=== PATIENT | female | born 1945 | race Caucasian/White ===

== ENCOUNTER 2023-10-26 21:33 | Observation (INO) | payer MEDICARE, BC, SELFPAY ==
[2023-10-26 16:25] VITALS: BP 108/68
[2023-10-26 16:29] LABS: Glucose - Point of Care 80 mg/dl (70-99)
--- NOTE | 2023-10-26 16:42 | ED.GENMED ---
History of Present Illness
General
Chief Complaint: Change in Mental Status
Time Seen by Provider: 10/26/23 16:22
History of Present Illness
History of Present Illness:
Patient presents to the emergency department with altered mental status. She has a history of lung cancer with metastatic disease. Patient is altered at baseline per report however over the past 24 hours she has become more lethargic with
decreased p.o. intake and more confused than her baseline. Patient is awake and pleasantly confused, unable to provide reliable history. Awaiting 's arrival.
Past History
Past History
ED Past Medical History: Cancer (Brain, breast) and COPD
ED Past Surgical History: Other
Social History
Tobacco: Non-smoker
Alcohol: None
Drug: None
Personal:
Living: with family
Employment: Retired
Family History
Family History: Other (Noncontributory)
Phy Exam
Physical Exam
Physical Exam:
GENERAL APPEARANCE: NAD, well developed/ well nourished
EYES lids/conjunctiva normal
EARS/NOSE/THROAT Mucous membranes moist, uvula midline without oral pharyngeal erythema, exudate or swelling
HEAD/NECK normocephalic atraumatic, neck is supple.
RESPIRATORY respiratory effort normal, speaks in full sentences, no accessory muscle use. Lungs clear to auscultation without rhonchi, wheezes, rales
CARDIAC Regular rate and rhythm, no edema.
ABDOMINAL Soft, ND/NT. No pulsatile masses on exam, rebound tenderness, Spaulding sign or pain over Mcburney's point.
MUSCLES/EXTREMITIES No abnormal range of motion, no swelling.
SKIN Warm, pink and dry. No rashes
NEUROLOGICAL Speech is clear. Normal level of consciousness. Cranial nerves grossly intact. 5/5 strength in all extremities. Oriented x [address] with cognitive difficulties
Course
Orders/Labs/Results
Orders:
Orders
10/26/23 16:24
EKG [Electrocardiogram (*1)] Urgent
Reason for Study: Other
Other Reason for Exam: CIMS
EKG- Treatment ONCE
10/26/23 16:38
0.9% Sodium Chloride 500 ml [Nss] 500 ml IV BOLUS
Pharmacy Request to Place See Dose Instructions PO NOW STA
Discontinue all Active Warfarin orders?: Yes
Notify MD As Directed
Notify physician if: Call provider for further orders if PTT is greater than or equal to 200 per heparin
infusion protocol.
Nursing to Place Non Medication Order As Directed
Physician Order: PTT 6 hours after initial start of Heparin infusion
Pulse Ox/cont/shift [RESP] Stat
Quantity: 1
10/26/23 16:39
CT Head W/o Iv Contrast Urgent
Comment:
Reason For Exam: altered mental status
CR Chest - 2 Views Urgent
Comment:
Reason For Exam: altered mental status
10/26/23 16:41
Blood Culture Urgent
CLARENCE Source: Blood/Venous
Specimen Description:
10/26/23 17:[address] See Dose Instructions IV DIRECTED
10/26/23 17:34
CBC/With Diff [Complete Blood Count/With Diff] Urgent
CMP [Comprehensive Metabolic Panel] Urgent
Magnesium Urgent
PTT Urgent
Comment: Obtain baseline before beginning heparin infusion if not already collected
TSH Urgent
Troponin I Urgent
10/26/23 19:12
Urinalysis Reflex To Culture Urgent
Date Specimen was Collected: 10/26/23
Time Specimen was Collected: 19:11
Urine Microscopic Reflex Cult Urgent
10/26/23 20:10
Azithromycin 500 mg/250 ml [Zithromax Infusion] 500 mg in 250 ml IV NOW
CefTRIAXone [Rocephin] 1,000 mg IV NOW STA
Abnormal Lab Results
10/26/23 10/26/23
17:34 19:12
RBC 3.89 L 10^6/uL
(4.20-5.40)
Hgb 11.2 L g/dL
(12.0-16.0)
Hct 32.9 L %
(37.0-47.0)
RDW 14.7 H %
(11.5-14.5)
Abs Immat Gran (auto) 0.1 H 10^3/uL
(0-0.05)
Immature Gran % 0.8 H %
(0-0.5)
Lymphocytes % 19.9 L %
(20.5-51.1)
APTT 48.9 H Sec
(23.4-35.0)
Sodium 133 L mmol/L
(135-145)
Chloride 96 L mmol/L
(98-107)
Total Protein 5.7 L g/dl
(6.3-8.2)
Leukocyte Esterase Rfl Trace A
(Negative)
10/26/23 17:34
10/26/23 17:34
Vital Signs
Initial and Last Documented VS:
Initial Vital Signs
Temp Pulse Resp BP Pulse Ox
98.5 F 87 17 108/68 98
10/26/23 16:25 10/26/23 16:25 10/26/23 16:25 10/26/23 16:25 10/26/23 16:25
Last Documented Vital Signs
Temp Pulse Resp BP Pulse Ox
98.5 F 87 17 108/68 98
10/26/23 16:25 10/26/23 16:25 10/26/23 16:25 10/26/23 16:25 10/26/23 16:25
*Critical Care Note
Total Time (30-74mins, 75-104mins- exclusive of procedures): Not Applicable
ED Attending Note
ED Attending Note
ED Attending Note:
Patient presents with altered mental status and poor p.o. intake. She has no focal neurologic deficits but is confused. Suspect dehydration. Suspect metabolic or infectious causes. Will check CT head given history of brain cancer to rule out
intracranial hemorrhage. Will perform broad workup including blood cultures given history of bacteremia.
hx of lung cancer with mets to brain/bone, dvt on eliquis , copd
here with altered mental status
notes poor PO intake, increased lethargy over the past day.
has had similar episodes that self resolved in the past but this one is persisting
he is worried about her safety at home
she is afebrile, hemodynamically stable, no focal deficits, she is awake and alert but she is confused
workup is largely reassuring - CT is not acute
labs with mild anemia, mild hyponatremia
CXR with possible L basilar infiltrate (RADS HASNT READ YET) -- she has no respiratory issues but giving her a dose of abx
urine negative
has a hx of bacteremia in the past - blood culture sent
-
Portions of this chart may have been created with voice recognition software.� Occasional wrong word or��sound alike� substitutions may have occurred due to the inherent limitations of voice recognition software.
Discharge Plan
Departure
Patient Disposition: Admit
Date of Disposition: 10/26/23
Time of Disposition: 20:12
Presentation/result/management discussed w/ accepting MD/DO: Hospitalist
Discharge Problem:
Pneumonia, Acute alteration in mental status
Prescriptions:
No Action
simvastatin 40 mg tablet
40 mg PO HS
ferrous sulfate 325 mg (65 mg iron) tablet
325 mg PO DAILY
folic acid 1 mg tablet
1 mg PO DAILY
albuterol sulfate 90 mcg/actuation HFA aerosol inhaler
2 puff INHALATION R Q4 PRN (Reason: sob)
Eliquis 5 mg tablet
5 mg PO BID
Anoro Ellipta 62.5-25 mcg/actuation blister with device
1 inh INHALATION R DAILY
polyethylene glycol 3350 [Miralax] 17 gram powder in packet
17 g PO BID Qty: 100 1RF
Rx Instructions:
HOLD DOSE OR TWO IF HAVE DIARRHEA
amoxicillin-pot clavulanate 875-125 mg tablet
1 tab PO BID Qty: 14 0RF
albuterol sulfate 2.5 mg /3 mL (0.083 %) solution for nebulization
2.5 mg inhalation Q4H PRN (Reason: shortness of breath or wheezing) Qty: 180 0RF
prednisone 10 mg Tablet
See Rx Instructions .ROUTE .COMPLEX Qty: 30 0RF
Rx Instructions:
Take By Mouth:
40 mg daily x3 days, 30 mg daily x3 days,
20 mg daily x3 days, 10 mg daily x3 days.
Referrals:
Aaron Bowers MD [Family Provider] -
Interventions
Interventions:
*Risk Screen - Suicide Last Done: 10/26/23 16:25
*General Assessment Last Done: 10/26/23 16:25
*Neglect/Abuse Screening Last Done: 10/26/23 16:25
Discharge Date and Time
Print Language: MOHAWK
[2023-10-26 17:00] VITALS: BP 96/56
[2023-10-26] MEDS: NSS 500 IV (17:36)
[2023-10-26 17:45] LABS: % Basophils 0.2 % (0-2); % Eosinophils 1.4 % (0-6); % Immature Granulocytes 0.8 % (0-0.5); % Lymphocytes 19.9 % (20.5-51.1); % Monocytes 5.8 % (1.7-9.3); % Neutrophils 71.9 % (42.2-75.2); Absolute Eosinophils 0.1 10^3/uL (0-0.7); Absolute Immature Granulocytes 0.1 10^3/uL (0-0.05); Absolute Lymphocytes 1.3 10^3/uL (1.2-3.4); Absolute Monocytes 0.4 10^3/uL (0.1-0.6); Absolute Neutrophils 4.6 10^3/uL (1.4-6.5); Hematocrit 32.9 % (37.0-47.0); Hemoglobin 11.2 g/dL (12.0-16.0); Mean Corpuscular Hgb 28.8 pg (27.0-31.0); Mean Corpuscular Volume 84.6 fL (81.0-99.0); Mean Platelet Volume 9.9 fL (7.4-10.4); Nucleated Red Blood Cells % 0 %; Platelet Count 168 10^3/uL (130-400); Red Blood Cell Count 3.89 10^6/uL (4.20-5.40); Red Cell Dist. Width 14.7 % (11.5-14.5); White Blood Cell Count 6.4 10^3/uL (4.8-10.8)
[2023-10-26 17:54] LABS: APTT 48.9 Sec (23.4-35.0)
[2023-10-26 18:04] LABS: Troponin I < 0.012 ng/ml
[2023-10-26 18:06] LABS: ALT (SGPT) 21 U/L (0-35); AST (SGOT) 28 U/L (14-36); Albumin 3.6 g/dl (3.5-5.0); Alkaline Phosphatase 64 U/L (38-126); Blood Urea Nitrogen 14 mg/dl (7-17); Carbon Dioxide 30 mmol/L (22-30); Chloride 96 mmol/L (98-107); Estimated Creatinine Clearance 53 ml/min; Glucose 94 mg/dl (70-99); Magnesium 2.2 mg/dl (1.6-2.3); Potassium 3.6 mmol/L (3.5-5.1); Sodium 133 mmol/L (135-145); Total Bilirubin 0.6 mg/dl (0.2-1.3); Total Protein 5.7 g/dl (6.3-8.2); eGFR > 60.00
[2023-10-26 18:31] LABS: TSH 1.72 uIU/ml (0.47-4.68)
[2023-10-26 18:40] VITALS: BP 111/64
[2023-10-26 19:11] VITALS: BP 116/73
[2023-10-26 19:23] LABS: Urine Albumin Negative (Neg - Trace); Urine Bilirubin Negative (Negative); Urine Character Clear (Clear); Urine Color Straw; Urine Glucose Negative (Negative); Urine Ketone Negative (Negative); Urine Leukocyte Trace (Negative); Urine Nitrite Negative (Negative); Urine Occult Blood Negative (Negative); Urine Specific Gravity 1.005 (<1.030); Urine Urobilinogen Negative (Neg - 1+)
[2023-10-26 19:33] LABS: Urine Red Blood Cell None Seen /HPF (0-2); Urine White Cell 0-2 /HPF (0-5)
[2023-10-26 20:00] VITALS: BP 124/65
--- NOTE | 2023-10-26 20:40 | HPS.HSE ---
Family Physician
-
Family Physician: Aaron Bowers
Chief Complaint
-
Confusion / Change in Mental Status
History of Present Illness
Patient is a 78y F with PMH significant for metastatic lung cancer who presents to ED for evaluation of confusion. History obtained from patient and her at the bedside. states that patient was doing fairly well until last PM
around 10. At this point she became more confused, very weak and had difficulty speaking or following commands. notes that patient has had similar episodes in the past - typically lasting only minutes - hours. Unfortunately, this episode
lasted for several hours and persisted this AM. Patient was restless overnight and at one point fell from the bed. No evident injuries were appreciated.
Patient has had no recent / new symptoms including fevers / chills, sore throat, cough, N/V/D or complaints.
At the time of my examination in the ED, patient is awake and alert and able to contribute to this history. She states that she feels very well at present.
Medical History
Past Medical History
Past Medical History: Reports Other
Additional Past Medical History:
Metastatic Lung Cancer s/p Immunotherapy, Chemo, XRT, etc - Not currently on active treatment.
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
COPD
History of DVT
Past Surgical History: Reports Other
Additional Past Surgical History:
Left Lumpectomy
Chemo Port Placement R ACW
GammaKnife Surgery
Social History
Tobacco: Former Smoker (Quit smoking 15 years ago. > 40 pack years total use.)
Alcohol: None
Drug: None
Personal:
Living: With Family
Family History
Family History: Not pertinent
Allergies / Home Medications
Allergies reflects when Allergies were last updated in [facility].
Home Medications with original date entered in [facility]
Allergy/Medication List:
Allergies
Allergy/AdvReac Type Severity Reaction Status Date / Time
No Known Allergies Allergy Verified 12/13/22 18:05
Home Medications
albuterol sulfate 90 mcg/actuation aerosol inhaler 2 puff inhalation R Q4 PRN sob 12/13/22
apixaban 5 mg tablet (Eliquis) 5 mg PO BID DVT 12/13/22
ferrous sulfate 325 mg (65 mg iron) tablet 325 mg PO DAILY Supplement 12/13/22
simvastatin 40 mg tablet 40 mg PO HS High Cholesterol 12/13/22
arformoterol 15 mcg/2 mL solution for nebulization (Brovana) 2 ml inhalation BID 10/26/23
budesonide 0.5 mg/2 mL suspension for nebulization 0.5 mg inhalation BID 10/26/23
dexamethasone 4 mg tablet 4 mg PO DAILY 10/26/23
revefenacin 175 mcg/3 mL solution for nebulization (Yupelri) 175 mcg inhalation DAILY 10/26/23
Review of Systems
-
History Source: Patient and Family
A 12 point ROS was completed and negative except as noted: Yes
Constitutional: Reports Fatigue; Denies Fever or Chills
EENT: Denies Sore Throat
Respiratory: Denies Cough or Trouble Breathing
Cardiac: Denies Chest Pain or Palpitations
Abdomen/GI: Denies Abdominal Pain, Nausea, Vomiting or Diarrhea
: Denies Dysuria, Frequency or Flank Pain
Neurological: Denies Dizzy or Headache
Psych: Reports Dementia; Denies Depression or Anxiety
Physical Exam
Vital Signs
Vital Signs
Temp Pulse Resp BP Pulse Ox
98.5 F 87 17 108/68 98
10/26/23 16:25 10/26/23 16:25 10/26/23 16:25 10/26/23 16:25 10/26/23 16:25
Physical Exam
General: Other (78y F in no acute distress at present.)
HEENT: Moist mucous membranes and PERRLA
Respiratory: Clear; No Wheezes, Rales or Rhonchi
Cardiac: S1/S2 and Regular Rhythm; No Murmur
GI: Soft, Non Tender, Non Distended and Normal Bowel Sounds
Musculoskeletal: No Clubbing, No Cyanosis and No Edema
Neuro: AO x 3 and Nonfocal/grossly intact
Laboratory Results
-
10/26/23 17:34
10/26/23 17:34
Laboratory Results
APTT 48.9 Sec (23.4-35.0) H 10/26/23 17:34
Total Bilirubin 0.6 mg/dl (0.2-1.3) 10/26/23 17:34
AST 28 U/L (14-36) 10/26/23 17:34
ALT 21 U/L (0-35) 10/26/23 17:34
Alkaline Phosphatase 64 U/L (38-126) 10/26/23 17:34
Troponin I < 0.012 ng/ml 10/26/23 17:34
Impression/Plan
-
A/P: Patient is a 78y F with PMH significant for metastatic lung cancer not currently on active treatment who presents to ED for evaluation of episode of confusion.
Acute on Chronic TME
- Observe overnight for further evaluation and treatment.
- No evidence of any acute process underlying her mental status change at this time.
- She is afebrile, non-toxic without leukocytosis or any clinical complaints.
- Would observe off of any further abx for now. Follow fever curve, culture data, etc.
- Recent Neurology evaluation per noting BUSINESS DATABASE ANALYST changes likely as a result of prior whole brain radiation.
- Suspect that this has a great deal to do with her episodic confusion / apparent developing dementia.
- Follow for any new / worsening symptoms.
- Follow for an evidence of acute underlying process.
Metastatic Lung Cancer
- No currently on active treatment. Last chemo was 2 months ago.
- CT head done in the ED today is unremarkable - for noncontrast CT.
- Patient was started on dexamethasone a few weeks ago by Oncology.
- Purpose for this is unclear, but hesitate to adjust this medication at present.
- Follow-up with Oncology as an outpatient as planned.
COPD
- Stable. No cough, wheezing, etc.
- Continue usual inhaled medications.
- Monitor for any new respiratory complaints.
Mild Hyponatremia
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
- Fluid restriction.
- Follow for any changes.
DVT Prophylaxis
History of DVT
- Continue Eliquis
Code Status: Full
[2023-10-26] MEDS: ZITHROMAX INFUSION 250 IV (21:51)
[2023-10-26] MEDS: ROCEPHIN 1000 MG IV (21:51)
--- NOTE | 2023-10-26 22:32 | PTCARENOTE ---
Pt received from ED to [facility]. Pt oriented to room and call becker. Bed alarm in place.
[2023-10-26] MEDS: LIPITOR 20 MG PO (23:09)
[2023-10-26 23:22] VITALS: BMI 21.6
[2023-10-26 23:23] VITALS: BP 101/59; BP 98/58; PULSE 96; PULSE 97
[2023-10-27 00:06] LABS: Ammonia < 9 umol/L (9-30)
[2023-10-27 03:15] VITALS: BP 106/53
[2023-10-27 06:00] VITALS: BMI 21.6
[2023-10-27 06:25] LABS: Hematocrit 31.5 % (37.0-47.0); Hemoglobin 10.6 g/dL (12.0-16.0); Mean Corp Hgb Conc. 33.7 g/dL (33.0-37.0); Mean Corpuscular Hgb 28.5 pg (27.0-31.0); Mean Corpuscular Volume 84.7 fL (81.0-99.0); Mean Platelet Volume 9.1 fL (7.4-10.4); Platelet Count 158 10^3/uL (130-400); Red Blood Cell Count 3.72 10^6/uL (4.20-5.40); Red Cell Dist. Width 14.6 % (11.5-14.5)
[2023-10-27 06:42] LABS: Blood Urea Nitrogen 13 mg/dl (7-17); Calcium 8.6 mg/dl (8.4-10.2); Carbon Dioxide 31 mmol/L (22-30); Chloride 100 mmol/L (98-107); Estimated Creatinine Clearance 62 ml/min; Glucose 73 mg/dl (70-99); Sodium 136 mmol/L (135-145); eGFR > 60.00
[2023-10-27 07:12] LABS: TSH Reflex To Free T4 2.15 uIU/ml (0.47-4.68)
[2023-10-27 07:44] VITALS: BP 119/74
[2023-10-27 07:45] VITALS: BP 116/57; BP 119/74; PULSE 84; PULSE 88
--- NOTE | 2023-10-27 08:24 | W.PN.HOSP.TC ---
Today's Communication/Plan
-
Discharge today
Assessment / Plan
Assessment / Plan
HPI: 78y F with PMH significant for metastatic lung cancer who presents to ED for evaluation of confusion. History obtained from patient and her at the bedside. states that patient was doing fairly well until last PM around 10.
At this point she became more confused, very weak and had difficulty speaking or following commands. notes that patient has had similar episodes in the past - typically lasting only minutes - hours. Unfortunately, this episode lasted for
several hours and persisted this AM. Patient was restless overnight and at one point fell from the bed. No evident injuries were appreciated.
Acute on Chronic TME
- No evidence of any acute process underlying her mental status change at this time.
- She is afebrile, non-toxic without leukocytosis or any clinical complaints.
- Recent Neurology evaluation per noting LICENSED PRACTICAL NURSE INSTRUCTOR changes likely as a result of prior whole brain radiation.
- Suspect that this has a great deal to do with her episodic confusion / apparent developing dementia.
- TSH normal, B12 normal, ammonia normal
- would like patient discharged so he can take her to her MRI appointment at 5:30 PM today, and follow-up with her usual neurologist this week
- Discharge today
Metastatic Lung Cancer
- No currently on active treatment. Last chemo was 2 months ago.
- CT head done in the ED is unremarkable - for noncontrast CT.
- Patient was started on dexamethasone a few weeks ago by Oncology.
- Purpose for this is unclear, but hesitate to adjust this medication at present.
- Follow-up with Oncology as outpatient as planned.
COPD
- Stable. No cough, wheezing, etc.
- Continue usual inhaled medications.
- Monitor for any new respiratory complaints.
Mild Hyponatremia
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
- Resolved with fluid restriction, trend sodium
DVT Prophylaxis
History of DVT
- Continue Eliquis
Code Status: Full
Physical Exam
General: No acute distress
HEENT: Normocephalic, Atraumatic, EOMI, MMM
Respiratory: Clear to Auscultation bilaterally
Cardiac: Normal S1/S2, Regular Rate and Rhythm
GI: Soft, Nontender, Nondistended, Normal Bowel Sounds
Extremities: No Clubbing, Cyanosis, or Edema
Neuro: Nonfocal/Grossly Intact
Psych: Calm, Cooperative
Derm: No Visible lesions
Anticipated Discharge: Today
Subjective/Interval History
-
Date of Service: October 27, 2023
Patient not really answering many questions. She does not verbalize. No fever, no vomiting.
Objective Data
-
Labs:
Laboratory Results
10/27/23
05:52
WBC 5.0
Hgb 10.6 L
Hct 31.5 L
Plt Count 158
Sodium 136
Potassium 4.0
Chloride 100
Carbon Dioxide 31 H
BUN 13
Creatinine 0.6
Glucose 73
Calcium 8.6
Vital Signs:
Vital Signs
Temp Pulse Resp BP Pulse Ox
98 F 84 18 119/74 95
10/27/23 07:44 10/27/23 07:44 10/27/23 07:44 10/27/23 07:44 10/27/23 07:44
[2023-10-27 08:51] VITALS: BP 102/53; BP 106/66; PULSE 87; O2SAT 96
[2023-10-27 08:52] VITALS: BP 102/53; BP 106/66
[2023-10-27] MEDS: FEOSOL 325 MG PO (08:53)
[2023-10-27] MEDS: DECADRON 4 MG PO (08:53)
[2023-10-27] MEDS: ELIQUIS 5 MG PO (08:53)
[2023-10-27 11:19] VITALS: BP 117/64
[2023-10-27 12:08] LABS: Vitamin B12 > 1000 pg/ml (239-931)
--- NOTE | 2023-10-27 14:01 | W.DCSUMMARY ---
Discharge Summary
Discharge Data
Date of Admission: 10/26/23
Date of Discharge: 10/27/23
-
Pending Results: No
Hospital Course
Discharge diagnosis:
Acute on chronic toxic metabolic encephalopathy
Probable sequela of whole brain radiation
Metastatic lung cancer
Chronic obstructive pulmonary disease
Mild hyponatremia
Head CT:
No evidence of acute intracranial abnormality.
Mild to moderate diffuse atrophy. Moderate to severe leukomalacia.
Hospital course:
78-year-old female with a past medical history of metastatic lung cancer with metastases to the brain status post whole brain radiation, and COPD was brought in by her for acute on chronic toxic metabolic encephalopathy. reports
that patient has been having intermittent episodes of confusion, weakness, and speech difficulty. This lasts for minutes to hours. Patient was seen by her usual neurologist at [place], who stated that her PHARMACEUTICAL COMPOUNDING SUPERVISOR changes are likely a result of prior
whole brain radiation. Her TSH and ammonia levels were normal. B12 was supratherapeutic. Patient was monitored overnight. Her requested discharge so he can take her to her MRI appointment at 5:30 PM today. She has an appointment to
follow-up with her usual neurologist later this week.
Patient is discharged in stable condition. She needs to follow-up with her usual neurologist this week, as well as her primary care doctor in 1 week.
Disposition: Home self care (spouse declined home VN)
Discharge planning: Required 40 minutes
Discharge Plan
-
Patient Disposition: Home (Routine Discharge)
Discharge Diagnosis/Procedures: Acute on chronic toxic metabolic encephalopathy from radiation, metastatic lung cancer not on treatment currently
Condition: Fair
Diet: Low Fat and Low Cholesterol
Activity: As tolerated
Driving Restrictions: No driving
Activity Restrictions/Additional Instructions:
Please keep your MRI appointment today at 5:30pm, and follow-up with neurology in the office as scheduled.
Referrals:
Aaron Bowers MD [Family Provider] - in one week
Prescriptions:
Continued
simvastatin 40 mg tablet
40 mg PO HS
ferrous sulfate 325 mg (65 mg iron) tablet
325 mg PO DAILY
albuterol sulfate 90 mcg/actuation HFA aerosol inhaler
2 puff INHALATION R Q4 PRN (Reason: sob)
Eliquis 5 mg tablet
5 mg PO BID
dexamethasone 4 mg Tablet
4 mg PO DAILY
budesonide 0.5 mg/2 mL Suspension For Nebulization
0.5 mg INHALATION BID
arformoterol [Brovana] 15 mcg/2 mL Solution For Nebulization
2 ml INHALATION BID
Yupelri 175 mcg/3 mL Solution For Nebulization
175 mcg INHALATION DAILY
Discharge Orders:
Discharge Patient (As Directed); Ordered 10/27/23
Ordered By: Shawn Wood
Discharge Date and Time
Discharge Date/Time: 10/27/23 14:46
Print Language: KITTITIAN
--- NOTE | 2023-10-27 14:05 | CM ---
Patient was admitted under OBS, DAWN letter provided to patient and signed. Patient lives with spouse in a one story home, per spouse patient is able to stand and pivot to w/c, spouse assists with all care, patient has caregivers 2 days a week 6
hours per days spouse is trying to increase services. shift manager offered patient's spouse visiting nurses however patient's spouse states that they have a meeting this week with neurology and they are working on plan for patient including goals of
care.
Pharmacy; [facility]
PCP; Dr. Bowers
Plan; Home with spouse and private caregivers and follow up with patient's neurologist this week.
== END 2023-10-27 14:46 | disposition home or self-care (01) ==
LOC: 4 WEST ACU 21:33
PROVIDERS: ADMITTING PHYSICIAN Hospitalist; ATTENDING PHYSICIAN Family Medicine; EMERGENCY PHYSICIAN Emergency Medicine; FAMILY PHYSICIAN Internal Medicine
DX: G92.8 Other toxic encephalopathy (principal); R53.83 Other fatigue; R41.0 Disorientation, unspecified; C34.90 Malignant neoplasm of unspecified part of unspecified bronchus or lung; E87.1 Hypo-osmolality and hyponatremia; G31.89 Other specified degenerative diseases of nervous system; J43.9 Emphysema, unspecified; D64.9 Anemia, unspecified; C79.31 Secondary malignant neoplasm of brain; I45.10 Unspecified right bundle-branch block; R47.9 Unspecified speech disturbances; R45.1 Restlessness and agitation; W06.XXXA Fall from bed, initial encounter; Y93.89 Activity, other specified; Y92.003 Bedroom of unspecified non-institutional (private) residence as the place of occurrence of the external cause; Z85.3 Personal history of malignant neoplasm of breast; Z87.01 Personal history of pneumonia (recurrent); Z86.718 Personal history of other venous thrombosis and embolism; Z79.01 Long term (current) use of anticoagulants; Z79.51 Long term (current) use of inhaled steroids; Z79.52 Long term (current) use of systemic steroids; Z92.21 Personal history of antineoplastic chemotherapy; Z92.3 Personal history of irradiation; Z87.891 Personal history of nicotine dependence
CPT/HCPCS: 70450; 71046; 80048; 80053; 81003; 81015; 82140; 82607; 82962; 83735; 84443; 84484; 85025; 85027; 85730; 87040; 93005; 96360; 96361; 97163; 97166; 99285; G0378